=== PATIENT | male | born 1990 | race Caucasian/White ===

== ENCOUNTER 2019-09-08 08:17 | Observation (INO) | payer MEDICAID, SELFPAY ==
[2019-09-08] VITALS (13 sets, daily range): BP systolic 98–118; BP diastolic 52–76; PULSE 64–90; RESP 14–21; TEMP 36.4–37.2; O2SAT 88–95; BMI 15.7; BMI 21.9
--- NOTE | 2019-09-08 08:22 | RAD_ITS ---
STUDY: X-RAY CHEST REASON FOR EXAM: Male, 28 years old. SOB. HX OF ASTHMA TECHNIQUE: Single AP portable view of the chest. COMPARISON: None. FINDINGS: The lungs are clear and expanded. There is no demonstrated pleural abnormality. Normal size heart. Normal mediastinum and isamar. Normal visualized pulmonary arteries. Normal visualized aortic arch and descending thoracic aorta. Normal visualized thoracic spine. Normal visualized ribs, clavicles, and shoulders. There is no demonstrated abnormality of the visualized soft tissue structures of the upper abdomen. RAD/Chest 1 View (Portable) IMPRESSION: Normal x-ray examination of the chest. Electronically Signed: Neeraj Cassidy MD at 10:55 EST Tel , Service support ,
--- NOTE | 2019-09-08 08:23 | EKG12_ITS ---
Test Reason : SOB Blood Pressure : / mmHG Vent. Rate : 094 BPM Atrial Rate : 094 BPM P-R Int : 136 ms QRS Dur : 106 ms QT Int : 352 ms P-R-T Axes : 070 -69 061 degrees QTc Int : 440 ms Sinus rhythm with Fusion complexes Incomplete right bundle branch block Left anterior fascicular block Abnormal ECG Confirmed by MICHELE VARGAS, WAYNE ([id number]), editor continuity and script NAVIN AMATO ([id number]) on 09/11/2019 1:09:55 PM Referred By: Jed You Confirmed By:WAYNE BAUTISTA MD
--- NOTE | 2019-09-08 08:25 | ED.DCSUM_ITS ---
History of Present Illness Chief Complaint: Shortness of Breath Informant: Patient, EMS Onset: Today Activity at onset: Rest Timing: Continuous Quality: Wheezing Current Severity: Moderate Maximum Severity: Severe Worsened by: Coughing, Exertion Relieved by: Albuterol - but very little Associated Symptoms: Cough. Negative for: Bloody Sputum Chest Pain: Tightness Narrative: Patient states he has had symptoms of a typical sinus infection for him for the past 1.5 weeks, and this morning his asthma started flaring up to a severe point while he was driving home from working third shift. 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 He had to call EMS to pick him up once he got home, after using a couple albuterol treatments. He was given 2 more treatments by EMS in addition to being given Solu-Medrol 125 mg. He has a history of severe exacerbations and has been intubated in the ICU for this before. He does not feel that severe at this time. He has no other major medical problems, although he did have nasal polyp surgery and states he has had sinusitis on occasion since then. He has not seen a provider in the past 1.5 weeks since the sinusitis symptoms started, which include thick yellow nasal sputum, congestion, lots of sinus pressure, giving a bifrontal headache. No fevers. No blood. No hemoptysis. - Past Medical History (1) Asthma Status: Chronic Past Medical History - Allergies and Home Meds Allergies/Adverse Reactions: Allergies amoxicillin Allergy (Verified 09/08/19 08:26) Shortness of breath ibuprofen Allergy (Verified 09/08/19 08:26) Unknown Primary Care Physician: Care Physician,No Primary [Primary Care Provider] - Surgical History: - - nasal polypectomy Lives: Alone Smoking Status: Former smoker Review of Systems General: Reports: Malaise. Denies: Chills, Fever, Sweats Eyes: Denies: Visual changes - bilaterally, Diplopia ENT: Reports: Rhinorrhea, - - facial pressure. Denies: Bilateral ear pain, Sore throat Cardiovascular: Reports: Chest pain - tightness. Denies: Palpitations Respiratory: Reports: Dyspnea, Cough, Sputum, Dyspnea on exertion Gastrointestinal: Denies: Abdominal pain, Nausea, Vomiting, Diarrhea, Melena, Hematochezia Genitourinary: Denies: Dysuria, Hematuria, Frequency Musculoskeletal: Denies: Back pain, Swelling, Extremity Pain Skin: Denies: Rash, Wounds Neurological: Denies: Headache, Weakness, Numbness Physical Exam Vital Signs/Narrative: Vital Signs Temp Pulse Resp BP Pulse Ox 09/08/19 08:19 98.5 F 86 21 H 106/70 88 Inital Vital Signs reviewed: Yes General: Well nourished, Well developed, No Acute Distress Head: Normocephalic, Atraumatic Eyes: Perrl, EOMI ENT: Moist mucous membranes, No rhinorrhea, Sinus tenderness - diffuse bilat Neck: Supple, Nontender Cardiovascular: Regular rate, Regular rhythm, No murmurs, Tachycardia Respiratory: No distress - but tachypneic, Chest nontender, Wheezing. Negative for: Rales, Rhonchi Abdomen: Soft, Nontender, Nondistended, Normal bowel sounds Back: Nontender, Normal Inspection Extremities: Nontender, No edema. Negative for: Calf Tenderness Skin: Normal color, No rash, No Trauma Neurological: Alert, Oriented x3, Cranial nerves II-XII grossly intact, Normal Strength, Normal Sensation Psychological: Normal affect, Normal Mood Diagnostic/Tx/Re-eval Chest X-Ray - ED: 1 View, Read by ED Physician, Normal, Heart, Lungs, Mediastinum, Bony Structures, No Acute Disease 09/08/19 08:22 Chest 1 View (Portable) [RAD] Stat Laboratory Results 09/08/19 09/08/19 08:34 08:34 WBC 12.8 H RBC 5.32 Hgb 14.7 Hct 45.5 MCV 85.5 MCH 27.6 MCHC 32.3 RDW Std Deviation 41.5 RDW Coeff of Kimberly 13.3 Plt Count 299 MPV 9.7 Immature Gran % (Auto) 0.200 Neut % (Auto) 59.2 Lymph % (Auto) 17.5 L [place] % (Auto) 7.9 Eos % (Auto) 14.6 H Baso % (Auto) 0.6 Absolute Neuts (auto) 7.6 Absolute Lymphs (auto) 2.24 Nucleated RBC % 0 Sodium 141 Potassium 3.8 Chloride 108 H Carbon Dioxide 26.0 Anion Gap 7 BUN 18 Creatinine 1.09 Estim Creat Clear Calc 69.83 Est GFR (MDRD) Af Amer 104 Est GFR (MDRD) Non-Af 86 BUN/Creatinine Ratio 16.5 Glucose 95 Calcium 9.0 - Rhythm Strip Rhythm Strip: Sinus Tach Rate: 105 Ectopy: None - EKG Initial EKG Interpretation: Sinus Rhythm, No Acute Injury Pattern Treatment - Dyspnea: Oxygen, Albuterol, Atrovent, Antibiotics, Steroid - given [employer] Repeat Evaluation: Improved - but still hypoxemic on RA - Medical Decision Making On my interpretation chest x-ray shows no pneumonia. His labs show a mild nonspecific leukocytosis and are otherwise unremarkable. He was treated with terbutaline, IV magnesium, and an additional breathing treatment. On reevaluation his breathing is resolved, he is sleeping since he just got off of third shift. We turned his oxygen off, he is still hypoxic at 87% on room air. Therefore he placed back on oxygen, he is needing a Ventimask since his nasal cavity is clogged with mucus due to a sinusitis. Plan is for admission. ED Disposition - Plan for ED Patient: Disposition: [facility] Care [facility] Diagnosis: Acute asthma exacerbation, Acute sinusitis, Hypoxemia
--- NOTE | 2019-09-08 08:32 | NURSING ---
NO OLD EKGS
[2019-09-08] MEDS: Terbutaline 1 MG/ML Vial 0.25 MG SC (08:38)
[2019-09-08 08:48] LABS: Absolute Lymphocyte Count 2.24 X10^3/uL (0.83-4.51); Absolute Neutrophil Count 7.6 X10^3/uL (2.0-7.7); Basophil# 0.08 X10^3/uL; Basophil% 0.6 % (0-1); Eosinophil# 1.87 X10^3/uL; Eosinophils% 14.6 % (0-5); Hematocrit 45.5 % (40-54); Hemoglobin 14.7 g/dL (13.0-16.5); Lymphocyte # 2.24 X10^3/ul (4.0); Lymphocyte % 17.5 % (19-41); Mean Corp Hgb Conc 32.3 g/dL (32-36); Mean Corpuscular Hgb 27.6 pg (27.0-32.0); Mean Corpuscular Volume 85.5 fL (80-94); Mean Platelet Vol. 9.7 fl (6.2-12.0); Monocyte# 1.01 X10^3/uL; Monocyte% 7.9 % (0-10); NRBC Flagged by Analyzer 0 % (0-5); Neutrophil # 7.58 X10^3/uL (2.7-7.7); Neutrophil % 59.2 % (47-70); Platelet Count 299 K/mm3 (150-450); RBC Distribution Width CV 13.3 % (11.6-14.6); RBC Distribution Width SD 41.5 fl (35.1-43.9); Red Blood Count 5.32 M/mm3 (4.6-6.2); White Blood Count 12.8 K/mm3 (4.4-11.0)
[2019-09-08 08:56] LABS: Anion Gap 7 (5-15); BUN 18 mg/dL (7-18); BUN/Creat Ratio 16.5 RATIO (10-20); Chloride 108 mmol/L (98-107); Creatinine, Serum 1.09 mg/dL (0.70-1.30); EST Glomerular Filtration Rate 86 mL/min (>60); Est Glom Filt Rate - Afr Amer 104 mL/min (>60); Estimated Creatinine Clearance 69.83 ml/min; Glucose 95 mg/dL (74-106); Potassium 3.8 mmol/L (3.5-5.1); Sodium Level 141 mmol/L (136-145)
[2019-09-08] MEDS: Ondansetron 4 MG/2 ML Vial IV (09:36)
--- NOTE | 2019-09-08 10:31 | NURSING ---
TOOK THE PT OFF HIS DAVID MASK AND THE PT DESAT INTO THE 80'S. PUT THE PT BACK ON OXYGEN DUE TO THIS. THE PT IS NOW DOING BETTER WITH THE OXYGEN.
--- NOTE | 2019-09-08 10:50 | NURSING ---
DR RALPH BASSETT
--- NOTE | 2019-09-08 10:54 | NURSING ---
PCU KITTOE ASTHMA EXAC, HYPOXEMIA
--- NOTE | 2019-09-08 10:56 | HP.PCM_ITS ---
Problem List (1) Acute asthma exacerbation Status: Acute (2) Acute sinusitis Status: Acute (3) Hypoxemia Status: Acute (4) Asthma Status: Chronic History of Present Illness Date of Admission: 09/08/19 Chief Complaint: Shortness of breath The patient is a 28 year old M moderate persistent asthma who presented with shortness of breath. Patient had apparently run out of his Symbicort however he was yet to refill them. On the morning of his presentation he did develop significant shortness of breath with wheezing. He had tried to use his albuterol without much improvement. Patient subsequently presented to the emergency department as a result. Initial treatment administered in the emergency department did not result in significant improvement in patient condition. He was simply hypoxic saturating in the mid 80s. Of note patient had recently been treated for severe sinusitis Past Medical History Past Medical History (Chronic Problems): Chronic Problems Asthma (Chronic) Allergies amoxicillin Allergy (Verified 09/08/19 08:26) Shortness of breath ibuprofen Allergy (Verified 09/08/19 08:26) Unknown Home Medications: Ambulatory Orders Medication Instructions Recorded Albuterol Aerosols [Ventolin 2.5 mg INHALATION Q4HWA.RT 09/08/19 Aerosols] Albuterol Inhaler [Ventolin Hfa 1 - 2 puff INHALATION Q4H PRN PRN 09/08/19 (SP)] Budesonide/Formoterol 160/4.5 2 puff INHALATION BID 09/08/19 [Symbicort 160/4.5 Mcg Inhaler (SP)] Surgical History: - - nasal polypectomy Lives: Alone Smoking Status: Former smoker - *Family History Maternal History Items: No pertinent history - According to patient Paternal History Items: No pertinent history - According to patient Review of Systems Constitutional: Reports: Malaise. Denies: Anorexia, Chills, Fever, Night Sweats, Weight Change HEENT: Reports: Head Aches, Nasal Congestion, Sinus Congestion. Denies: Sinus Drainage Cardiovascular: Denies: Chest Pain, Orthopnea, Palpitations, Paroxysmal Noc. Dyspnea Respiratory: Reports: Cough, Shortness of Breath, Wheezing Gastrointestinal: Denies: Abdominal Pain, Hematemesis, Hematochezia, Nausea, Melena, Vomiting Genitourinary: Denies: Dysuria, Frequency, Hematuria, Urgency Musculoskeletal: Denies: Joint Pain, Joint Tenderness Skin: Denies: Rash Neurological: Denies: Focal weakness, Numbness, Tingling Psychiatric: Denies: Homicidal Ideations, Suicidal Ideations Hematologic/ Lymphatic: Denies: Easy Bruising, Easy Bleeding VTE Information - Inpt Only VTE Present on Admission: No VTE Mechan Device Prophylaxis: None VTE Pharm Prophylaxis ordered?: No Reason prophylaxis not ordered:: Treatment Not Indicated Patient Problems: Active and Suspected Problems Acute asthma exacerbation (Acute) Acute sinusitis (Acute) Hypoxemia (Acute) Objective: GENERAL: Appears ill looking HEENT: Atraumatic; EYES; Anicteric, Normal Conjunctiva NECK; supple, normal thyroid, RESPIRATORY: Diminished to auscultation bilateral wheezes CARDIOVASCULAR: Regular S1 S2, GI: soft, normoactive bowel sounds, : No Renal angle tenderness; EXTREMITIES: No edema, no clubbing, MUSCULOSKELETAL: no muscle waisting NEURO: Awake; no lateralizing signs. SKIN: No Rash PSYCH; Flat affect - Physical Exam Vitals/I&O's: Vital Signs Temp Pulse Resp BP Pulse Ox 97.6 F L 68 17 101/52 L 94 09/08/19 09:37 09/08/19 10:35 09/08/19 10:35 09/08/19 10:35 09/08/19 10:35 Oxygen Flow Rate (L/min) 5 Oxygen Delivery Method Venturi Mask Weight: 48.5 kg Body Mass Index (BMI) 15.7 Laboratory Results 09/08/19 08:34: WBC 12.8 H, RBC 5.32, Hgb 14.7, Hct 45.5, MCV 85.5, MCH 27.6, MCHC 32.3, RDW Std Deviation 41.5, RDW Coeff of Kimberly 13.3, Plt Count 299, MPV 9.7, Immature Gran % (Auto) 0.200, Neut % (Auto) 59.2, Lymph % (Auto) 17.5 L, [place] % (Auto) 7.9, Eos % (Auto) 14.6 H, Baso % (Auto) 0.6, Absolute Neuts (auto) 7.6, Absolute Lymphs (auto) 2.24, Nucleated RBC % 0 09/08/19 08:34: Sodium 141, Potassium 3.8, Chloride 108 H, Carbon Dioxide 26.0, Anion Gap 7, BUN 18, Creatinine 1.09, Estim Creat Clear Calc 69.83, Est GFR (MDRD) Af Amer 104, Est GFR (MDRD) Non-Af 86, BUN/Creatinine Ratio 16.5, Glucose 95, Calcium 9.0 Assessment/Plan All Active Problems Acute asthma exacerbation (Acute) Acute sinusitis (Acute) Hypoxemia (Acute) Patient is a 28-year-old gentleman admitted with progressive shortness of breath associated with wheezing and assessment of acute asthma exacerbation made admitted to a monitored bed for further management 1. Acute hypoxic respiratory failure ~secondary to severe asthma exacerbation management as is treatment of the underlying etiology as discussed below 2. Acute asthma exacerbation ?Admitted to monitored bed patient was placed on supplemental oxygen via Ventimask titrated to keep saturation greater than 90. Patient was also placed on systemic steroid, bronchodilator therapy, and antitussives and supplemental oxygen. Consult was placed to pulmonary medicine 3. Recurrent sinusitis ?With mucopurulent discharge patient was placed on antibiotic therapy with Levaquin (has allergy to amoxicillin) 4. Tobacco dependence ?Counseled on cessation, offered nicotine patch for tobacco cravings 5. DVT prophylaxis ?Low risk did encourage early ambulation Code Visit OBSV E&M: 41357 Initial observation care L3
[2019-09-08] MEDS: levoFLOXacin 500 MG Tablet PO (11:43)
[2019-09-08] MEDS: Ipratropium/Albuterol Sulfate 3 ML AMPUL.NEB INHALATION ×2 (12:00→15:12)
[2019-09-08] MEDS: 0.9% Saline Lock 10 ML Syringe IV (13:26)
--- NOTE | 2019-09-08 14:50 | CON.PCM_ITS ---
Reason for Consult Date of Consultation: 09/08/19 Reason for Consultation: Asthma History of Present Illness: The patient is a 28-year-old male, with a history as outlined below, who presented to the emergency department on September 08 with complaints of shortness of breath, cough and wheezing. The patient reports that he was initially diagnosed with asthma around the age of [age] years old. He was previously being followed by a senior architectural designer out of [place]. He does report having undergone prior nasal polyp surgery. The patient was previously utilizing twice daily Symbicort, but readily admits that he ran out approximately 3 to 4 weeks ago. Since running out of his maintenance inhaler, the patient has noticed a progressive decline in his respiratory status. The patient is a current every day smoker. He does report the presence of rhinorrhea, nasal congestion and postnasal drip as well. On presentation to the emergency department, the patient was noted to be afebrile and hemodynamically stable. However, he was initially saturating 80% on room air. Initial laboratory evaluation revealed an elevated white blood cell count to 13,000. Of note, the patient had significant peripheral eosinophilia of nearly 14.6%. Chemistry profile was unrevealing. Plain film chest x-ray r evealed no acute cardiopulmonary process. The patient was placed on scheduled bronchodilators and IV steroids. He was admitted to the progressive care unit for further management. Past Medical History Past Medical History (Chronic Problems): Chronic Problems Asthma (Chronic) Allergies amoxicillin Allergy (Verified 09/08/19 08:26) Shortness of breath ibuprofen Allergy (Verified 09/08/19 08:26) Unknown Home Medications: Ambulatory Orders Medication Instructions Recorded Albuterol Aerosols [Ventolin 2.5 mg INHALATION Q4HWA.RT 09/08/19 Aerosols] Albuterol Inhaler [Ventolin Hfa 1 - 2 puff INHALATION Q4H PRN PRN 09/08/19 (SP)] Budesonide/Formoterol 160/4.5 2 puff INHALATION BID 09/08/19 [Symbicort 160/4.5 Mcg Inhaler (SP)] Surgical History: - - nasal polypectomy Lives: Alone Smoking Status: Current every day smoker Tobacco Use: Cigarettes - *Family History Maternal History Items: No pertinent history - According to patient Paternal History Items: No pertinent history - According to patient Review of Systems Constitutional: Denies: Chills, Fever Eyes: Denies: Blurred vision, Double vision HEENT: Reports: Nasal Congestion, Post Nasal Drip, Sinus Drainage Cardiovascular: Reports: Chest Tightness Respiratory: Reports: Cough, Shortness of Breath, Wheezing Gastrointestinal: Denies: Abdominal Pain, Nausea, Vomiting Genitourinary: Denies: Dysuria Musculoskeletal: Denies: Joint Pain, Joint Tenderness Skin: Denies: Rash, Wounds Neurological: Denies: Numbness, Tingling, Focal weakness Psychiatric: Denies: Anxiety, Depression, Homicidal Ideations, Suicidal Ideat ions Hematologic/ Lymphatic: Denies: Easy Bruising, Easy Bleeding Objective: The patient's most recent lab work, culture data and imaging studies have all been personally reviewed. - Physical Exam Vitals/I&O's: Vital Signs Temp Pulse Resp BP Pulse Ox 98.0 F 78 18 108/69 95 09/08/19 12:00 09/08/19 12:16 09/08/19 12:00 09/08/19 12:00 09/08/19 12:00 Oxygen Flow Rate (L/min) 5 Oxygen Delivery Method Room Air Weight: 140 lb Body Mass Index (BMI) 21.9 Intake and Output for Last 24 Hours 09/06/19 09/07/19 09/08/19 23:59 23:59 23:59 Intake Total 104 / 104 Balance 104 / 104 General: Alert, Oriented x3, Cooperative, No apparent distress HEENT: Atraumatic, PERRLA, Normocephalic Oral: No Gingival or Mucosal Lesions/ Ulcerations Neck: Supple, No Nodes, Trachea Midline Lungs: Diminished, Wheezes Cardiovascular: Regular rate, Regular Rhythm, Normal S1, Normal S2, No murmurs Abdomen: Bowel Sounds Present, Soft, Non Tender Extremities: No clubbing, No cyanosis, No edema Skin: No breakdown Musculoskeletal: No Tenderness to Palpation of Joints or Extremities, No Muscle Wasting Lymphatic: No Cervical, Supraclavicular, or Inguinal Adenopathy Neurological: Cranial nerves II-XII grossly intact, Neuro grossly intact Psych/Mental Status: Alert and oriented to time, place, person, mood and affect Labs (Last 48 Hours) 09/08/19 09/08/19 08:34 08:34 WBC 12.8 H RBC 5.32 Hgb 14.7 Hct 45.5 MCV 85.5 MCH 27.6 MCHC 32.3 RDW Std Deviation 41.5 RDW Coeff of Kimberly 13.3 Plt Count 299 MPV 9.7 Immature Gran % (Auto) 0.200 Neut % (Auto) 59.2 Lymph % (Auto) 17.5 L [place] % (Auto) 7.9 Eos % (Auto) 14.6 H Baso % (Auto) 0.6 Absolute Neuts (auto) 7.6 Absolute Lymphs (auto) 2.24 Nucleated RBC % 0 Sodium 141 Potassium 3.8 Chloride 108 H Carbon Dioxide 26.0 Anion Gap 7 BUN 18 Creatinine 1.09 Estim Creat Clear Calc 69.83 Est GFR (MDRD) Af Amer 104 Est GFR (MDRD) Non-Af 86 BUN/Creatinine Ratio 16.5 Glucose 95 Calcium 9.0 Clinical Impression(s) from Imaging Studies Chest X-Ray 09/08/19 08:22 IMPRESSION: Normal x-ray examination of the chest. Electronically Signed: Neeraj Cassidy MD at 10:55 EST Tel , Service support , Current Medications Acetaminophen (Tylenol) 650 mg PO Q6H PRN PRN PRN Reason: Pain Score 1-3/Temp > 100.7 F Al Hydroxide/Mg Hydroxide (Mylanta Ii) 30 ml PO Q6H PRN PRN PRN Reason: Gastric Burning Albuterol Sulfate (Ventolin Aerosols) 2.5 mg INHALATION Q2H PRN PRN PRN Reason: SOB/Wheezing Albuterol/Ipratropium (Duoneb) 3 ml INHALATION Q4H.RT [facility] Last Admin: 09/08/19 12:00 Dose: 3 ml Documented by: Dextrose (D50w Syringe) 0 gm IV X1 PRN; Protocol PRN Reason: Hypoglycemia Glucagon () 1 mg IM .X1 PRN PRN Reason: Hypoglycemia Guaifenesin (Robitussin) 20 ml PO Q4H PRN PRN PRN Reason: COUGH Levofloxacin (Levaquin Iv) 500 mg in 100 mls @ 100 mls/hr IV Q24 ELISE Stop: 09/13/19 10:59 Magnesium Hydroxide (Milk Of Magnesia) 30 ml PO DAILY PRN PRN PRN Reason: Constipation Melatonin (Melatonin) 3 mg PO QHS PRN PRN PRN Reason: INSOMNIA Methylprednisolone (Solu-Medrol) 40 mg IV Q8 ELISE Stop: 09/09/19 14:01 Last Admin: 09/08/19 13:26 Dose: 40 mg Documented by: Ondansetron HCl (Zofran) 4 mg IV Q8H PRN PRN PRN Reason: NAUSEA/VOMITING Oxycodone HCl (Oxyir) 10 mg PO Q4H PRN PRN PRN Reason: Pain Score 6-10/10 Oxycodone HCl (Oxyir) 5 mg PO Q4H PRN PRN PRN Reason: Pain Score 4-5/10 Prednisone () 40 mg PO DAILY@0800 ELISE Sodium Chloride () 10 - 40 ml IV UD PRN PRN Reason: SALINE FLUSH Last Admin: 09/08/19 13:26 Dose: 10 ml Documented by: Throat Lozenges (Cepacol Sore Throat Lozenge) 1 lozenge MUCOUS MEM Q2H PRN PRN PRN Reason: Sore Throat/Cough Assessment/Plan All Active Problems Acute asthma exacerbation (Acute) Acute sinusitis (Acute) Hypoxemia (Acute) RECOMMENDATIONS: 1. Continue Levaquin while awaiting infectious work-up. 2. Continue scheduled bronchodilators and IV steroids. 3. Start Singulair and Flonase. 4. The patient undoubtedly needs to be restarted on a LABA/ICS combination maintenance inhaler at discharge. 5. Perform walking oximetry study prior to consideration for discharge home. 6. Recommend close outpatient pulmonary follow-up within 2 weeks of discharge. IMPRESSIONS: 1. Acute hypoxemic respiratory insufficiency, likely secondary to asthma exacerbation While the patient does not have evidence of a focal infiltrate on chest x-ray, his current state of exacerbation is likely secondary to outpatient noncompliance with his maintenance inhaler regimen coupled with upper respiratory symptoms and subsequent postnasal drip. Recommend continuing empiric antimicrobials, while awaiting infectious work-up. Continue scheduled bronchodilators and IV steroids. In addition, the patient will also be started on Singulair and Flonase. I would recommend that he be restarted on his combination LABA/ICS maintenance inhaler upon discharge from the hospital. The patient will require close follow-up in the pulmonary medicine clinic within 2 weeks of discharge. 2. Tobacco dependency I personally spent 5 minutes discussing the deleterious effects of continued tobacco use with the patient, including modalities which could be utilized to achieve a smoke-free lifestyle. This note was generated with Qwikwireation software. It may contain incorrect words, spelling, and punctuation that were not noted in checking the note before signing. Code Visit Inpatient E&M: 47825 Init Hosp L3 - Behavior Interventions Behavior Intervention: 28214 Smoking Cessation 3-10 min
[2019-09-08] MEDS: Montelukast 10 MG Tablet PO (16:42)
--- NOTE | 2019-09-08 20:07 | NURSING ---
Pt stating he needs to leave immediately d/t girlfriend needing him. Requested pt to speak to charge nurse first.
--- NOTE | 2019-09-08 20:32 | NURSING ---
Charge nurse Uma to room, pt stating he is leaving AMA. IV removed, tele box returned to nurse station. Pt signed AMA papers. Pt encouraged to establish relationship with a MD so he can get his prescriptions, return to ED if experiences further problems.
--- NOTE | 2019-09-08 22:11 | NURSING ---
09/08/192019 Asked to talk to patient by his primary nurse. Entered room, patient states he is leaving now. Encouraged him to stay. Explained to patient it is against medical advice to leave he has not been discharged. States he doesn't care, his fiance is at home, she is high risk and he wants to be with her. I asked him if there is anyone that can stay with her tonight and he said there is no one. No family here, it is the 2 of them and their 2 children. Again he said he is leaving, he said he wants prescriptions so he can go home. Explained to him that he will not get new prescriptions if he is signing out against medical advice. I said he would need to follow up with his primary care doctor. Much frustration voiced. He states he does not have one. Encouraged him to stay to get appropriate meds at discharge and help to establish a primary doctor. He states he is leaving now. AMA papers signed. Encouraged patient to return to the ED if his symptoms return.
--- NOTE | 2019-09-09 11:57 | PCM.DC.SUM ---
Discharge Date and Diagnosis Date of Admission: 09/08/19 Date of Discharge: 09/08/19 - Primary Discharge Diagnosis Asthma exacerbation - Secondary Discharge Diagnosis Chronic Problems Asthma (Chronic) Hospital Course and Treatment Summary of Care Provided: Patient is a 28-year-old gentleman admitted with progressive shortness of breath associated with wheezing and assessment of acute asthma exacerbation made admitted to a monitored bed for further management 1. Acute hypoxic respiratory failure ~secondary to severe asthma exacerbation management as is treatment of the underlying etiology ?Patient elected to sign out AGAINST MEDICAL ADVICE less than 24 hours after being admitted attempt made for patient to rescind his decision improved future. He was instructed to call his primary care physician for subsequent care. 2. Acute asthma exacerbation ?Admitted to monitored bed patient was placed on supplemental oxygen via Ventimask titrated to keep saturation greater than 90. Patient was also placed on systemic steroid, bronchodilator therapy, and antitussives and supplemental oxygen. Consult was placed to pulmonary medicine 3. Recurrent sinusitis ?With mucopurulent discharge patient was placed on antibiotic therapy with Levaquin (has allergy to amoxicillin) 4. Tobacco dependence ?Counseled on cessation, offered nicotine patch for tobacco cravings 5. DVT prophylaxis ?Low risk did encourage early ambulation - Physical Exam Vitals/I&O's: Vital Signs Temp Pulse Resp BP Pulse Ox 98.9 F 89 16 102/63 94 09/08/19 16:40 09/08/19 16:40 09/08/19 16:40 09/08/19 16:40 09/08/19 16:40 Oxygen Flow Rate (L/min) 5 Oxygen Delivery Method Room Air Weight: 63.503 kg Body Mass Index (BMI) 21.9 Intake and Output for Last 24 Hours 09/07/19 09/08/19 09/09/19 23:59 23:59 23:59 Intake Total 604 / 604 Balance 604 / 604 Microbiology Past 72 Hours 09/08/19 12:18 Sputum, Expectorated/Coughed Gram Stain - Final Discharge Diet: No Restrictions Discharge Activity: Return to Normal Activity Home Medications: Medications to take at Discharge Albuterol Aerosols [Ventolin Aerosols] 2.5 mg INHALATION Q4HWA.RT 09/08/19 Albuterol Inhaler [Ventolin Hfa (SP)] 1 - 2 puff INHALATION Q4H PRN PRN 09/08/19 Budesonide/Formoterol 160/4.5 [Symbicort 160/4.5 Mcg Inhaler (SP)] 2 puff INHALATION BID 09/08/19 Primary Care Physician: Care Physician,No Primary [Primary Care Provider] - Disposition: Against Medical Advice Patient Condition:: Fair Medical Necessity - Tobacco Use Smoking Status: Current every day smoker Tobacco Use: Cigarettes Meaningful Use Info Meaningful Use Diagnoses (Choose all that apply): None applicable Code Visit OBSV E&M: 26881 Observ/hosp same date L3
== END 2019-09-08 20:30 | disposition home or self-care (01) ==
LOC: ED 10:44 → PCU 11:35
PROVIDERS: Admitting Provider Internal Medicine; Emergency Provider Emergency Medicine; Referring Provider Internal Medicine; Visit Provider Internal Medicine
DX: J45.41 Moderate persistent asthma with (acute) exacerbation (principal); J96.01 Acute respiratory failure with hypoxia; Z79.52 Long term (current) use of systemic steroids; J01.90 Acute sinusitis, unspecified; F17.210 Nicotine dependence, cigarettes, uncomplicated
CPT/HCPCS: 71045; 80048; 85025; 87070; 87205; 87633; 93005; 94640; 94667; 96372; 96374; 96375; 99218; 99251; 99285; A4216; G0378; G0463; J2405

== ENCOUNTER 2021-10-15 10:30 | Emergency (ER) | payer MEDICARE, MEDICAID, OTHER, SELFPAY ==
[2021-10-15 10:31] VITALS: BP 112/78; PULSE 90; RESP 18; TEMP 36.6; O2SAT 98; BMI 21.9
--- NOTE | 2021-10-15 11:40 | EDS_ITS ---
HPI History of Present Illness Chief Complaint: Back Narrative Narrative: 30-year-old male presenting with pain in the sacrum and coccyx. States he slipped on ice and injured this. 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 He states that he was unable to do this and he was sent home. He complains of pain that is very difficult control because he is allergic to ibuprofen and Tylenol is not helping. He denies other injury. PFSH PFSH Home Medications albuterol sulfate 1 - 2 puff INHALATION Q4H PRN PRN 09/08/19 [History Last Taken Unknown] albuterol sulfate 2.5 mg INHALATION Q4HWA.RT 09/08/19 [History Last Taken Unknown] budesonide-formoterol 2 puff INHALATION BID 09/08/19 [History Last Taken Unknown] oxycodone-acetaminophen [Endocet] 1 tab PO Q6H PRN 3 Days #12 tab 10/15/21 [Rx Last Taken Unknown] Allergy/AdvReac Type Severity Reaction Status Date / Time amoxicillin Allergy Hives Verified 10/15/21 10:34 ibuprofen Allergy Unknown Verified 10/15/21 10:34 Social History Smoking Status: Current every day smoker ROS ROS ED Constitutional Constitutional ED: Denies chills or fever(s) Eyes Eyes: Denies blurry vision or diplopia ENT ENT ED: Denies rhinorrhea or sore throat Cardiovascular Cardiovascular: Denies chest pain or palpitations Respiratory/Chest Respiratory/Chest: Denies dyspnea or sputum Gastrointestinal Gastrointestinal: Denies abdominal pain or nausea Genitourinary Genitourinary ED: Denies dysuria or hematuria Musculoskeletal Musculoskeletal: Reports other Details: Pain in tailbone ; Denies arthralgias or myalgias Integumentary Denies abscess or rash Neurologic Neurologic: Denies headache(s) or weakness EXAM Physical Exam Const Vital Signs: 10/15/21 10:31 Temperature 97.9 F Temperature Source Temporal Pulse Rate 90 Respiratory Rate 18 Blood Pressure 112/78 Blood Pressure Mean 89 Pulse Ox 98 Oxygen Delivery Method Room Air Positive well nourished General Appearance ED: NAD HEENT Reports moist mucous membranes Negative for trauma Eyes PERRL and EOMs intact bilaterally Resp normal respiratory effort and clear to auscultation bilaterally Cardio regular rhythm Back/Spine Back/Spine Narrative: There is palpation over sacrum and coccyx. No deformity. No ecchymosis. No rash or abrasions Extremity normal to inspection General Extremety ED: Negative for edema or tenderness General Extremity: Negative for edema Neuro oriented x3 Sensorium / Orientation: alert Psych mental status grossly normal Skin no rashes or lesions noted MDM MDM MDM Narrative Medical decision making narrative: Patient having significant pain from falling on his tailbone. He is able to ambulate but states it is very painful. He also states he has had to be sent home from work because he cannot work with the pain. He states that Tylenol is not helping he is allergic to ibuprofen. I do not believe he needs imaging. Patient will be given a prescription for oxycodone and given a work note for a couple of days. He was given follow-up with primary care physician. Patient to return precautions. Impression: 1. Mechanical fall 2. Tailbone contusion Discharge Plan Triage Chief Complaint: Back ED Provider: Tom Walden Dx/Rx/DC Orders Instructions: ED Coccyx or Sacrum Contusion Prescriptions: New oxycodone-acetaminophen [Endocet] 5-325 mg tablet 1 tab PO Q6H PRN (Reason: pain) 3 Days Qty: 12 RF: 0 No Action albuterol sulfate 2.5 MG/3 ML solution for nebulization 2.5 mg inhalation Q4HWA.RT RF: 0 albuterol sulfate 1 INHALER inhaler 1 - 2 puff inhalation Q4H PRN PRN (Reason: Shortness Of Breath) RF: 0 budesonide-formoterol 1 INHALER inhaler 2 puff inhalation BID RF: 0 Stand Alone Forms: ED Work / School Excuse Primary Care Provider: Care Physician,No Primary Referrals: Fast,Nicolle, DO [NON-STAFF] - 3-5 Days Care Physician,No Primary [Primary Care Provider] - Disposition Disposition: Home, Self Care
== END 2021-10-15 12:06 | disposition home or self-care (01) ==
PROVIDERS: Emergency Provider Student in an Organized Health Care Education/Training Program; Visit Provider Student in an Organized Health Care Education/Training Program
DX: S30.0XXA Contusion of lower back and pelvis, initial encounter (principal); W00.0XXA Fall on same level due to ice and snow, initial encounter; Y99.0 Civilian activity done for income or pay; Y92.89 Other specified places as the place of occurrence of the external cause; F17.200 Nicotine dependence, unspecified, uncomplicated
CPT/HCPCS: 99282

== ENCOUNTER 2022-03-24 22:03 | Emergency (ER) | payer OTHER, MEDICARE, MEDICAID, SELFPAY ==
[2022-03-24 22:04] VITALS: BP 106/64; PULSE 102; RESP 18; TEMP 37.2; O2SAT 97; BMI 18.1
[2022-03-24 22:07] VITALS: BP 106/64; PULSE 99; RESP 18; TEMP 37.2; O2SAT 97
--- NOTE | 2022-03-24 22:21 | EKG12_ITS ---
Test Reason : Blood Pressure : / mmHG Vent. Rate : 091 BPM Atrial Rate : 091 BPM P-R Int : 140 ms QRS Dur : 110 ms QT Int : 342 ms P-R-T Axes : 073 002 070 degrees QTc Int : 420 ms Normal sinus rhythm Normal ECG Confirmed by WAYNE BAUTISTA MD ([id number]), supervising editor news reel KOBE CIFUENTES ([id number]) on 03/26/2022 2:14:27 PM Referred By: Reagan Confirmed By:WAYNE BAUTISTA MD
--- NOTE | 2022-03-24 22:23 | EX.ED.DYSGE1 ---
HPI History of Present Illness Chief Complaint: Cough Informant: patient Onset/Context/Timing Onset: Days (3 days) Context: Gradual Onset Current Severity: Mild Maximum Severity: Moderate Narrative Narrative: Patient presents with 3-day history of cough and sharp chest pain when he takes a deep breath. He had similar symptoms with pneumonia and is concerned he may have pneumonia again. He does not believe he has had fever. He did not test for COVID. He did not receive the COVID-vaccine. He does have a history of asthma and states has been using his inhalers more frequently. [facility] Medical History Asthma Home Medications albuterol sulfate 2.5 mg/3 mL (0.083 %) solution for nebulization 2.5 mg inhalation Q4HWA.RT 09/08/19 [History Last Taken Unknown] albuterol sulfate 90 mcg/actuation aerosol inhaler 1 - 2 puff inhalation Q4H PRN PRN Shortness Of Breath 09/08/19 [History Last Taken Unknown] budesonide-formoterol HFA 160 mcg-4.5 mcg/actuation aerosol inhaler 2 puff inhalation BID 09/08/19 [History Last Taken Unknown] albuterol sulfate 90 mcg/actuation aerosol inhaler (Ventolin HFA) 2 puff inhalation Q4H PRN PRN Wheezing ##1 03/24/22 [Rx Last Taken Unknown] levofloxacin 750 mg tablet 750 mg PO DAILY #4 tabs 03/24/22 [Rx Last Taken Unknown] Allergy/AdvReac Type Severity Reaction Status Date / Time amoxicillin Allergy Hives Verified 10/15/21 10:34 ibuprofen Allergy Unknown Verified 10/15/21 10:34 Social History Smoking Status: Current every day smoker tobacco type: cigarettes ROS ROS ED Constitutional Constitutional ED: Denies chills or fever(s) Eyes Eyes: Denies change in vision or discharge from eye(s) ENT ENT ED: Denies discharge from eye(s), rhinorrhea or sore throat Cardiovascular Cardiovascular: Reports chest pain; Denies palpitations Respiratory/Chest Respiratory/Chest: Reports cough and dyspnea Gastrointestinal Gastrointestinal: Denies abdominal pain, diarrhea, nausea or vomiting Genitourinary Genitourinary ED: Denies difficulty urinating or dysuria Musculoskeletal Musculoskeletal: Denies back pain or extremity pain Integumentary Denies Abrasions or rash Neurologic Neurologic: Denies headache(s) or weakness Allergic/Immunologic Allergic/Immunologic ED: Denies lip swelling or urticaria EXAM Physical Exam Const Vital Signs: 03/24/22 22:04 03/24/22 22:07 03/24/22 22:41 Temperature 98.9 F 98.9 F Temperature Source Temporal Temporal Pulse Rate 102 H 99 Respiratory Rate 18 18 Respiratory Effort Normal Non-Labored Respiratory Depth Normal Respiratory Pattern Normal Blood Pressure 106/64 106/64 Blood Pressure Mean 78 78 Pulse Ox 97 97 Oxygen Delivery Method Room Air Room Air Room Air Positive well nourished and well developed General Appearance ED: well developed HEENT Reports normocephalic and head/scalp atraumatic Eyes PERRL and EOMs intact bilaterally Neck supple Chest Wall inspection of chest normal and palpation of chest normal Resp normal respiratory effort and clear to auscultation bilaterally Cardio regular rate and regular rhythm GI normal to inspection, nondistended, normoactive bowel sounds Palpation: soft Extremity normal to inspection Neuro oriented x3 and no sensory deficits noted Sensorium / Orientation: alert Motor Exam: strength 5/5 throughout Psych mental status grossly normal Skin no rashes or lesions noted MDM MDM MDM Narrative Medical decision making narrative: EKG, chest x-ray, lab work obtained. COVID swab ordered. Lab Data Attestation: I reviewed the patient's lab results. Labs: Laboratory Results - last 24 hr 03/24/22 03/24/22 03/24/22 22:39 22:39 22:39 WBC 20.1 H RBC 4.51 L Hgb 12.8 L Hct 38.4 L MCV 85.1 MCH 28.4 MCHC 33.3 RDW Std Deviation 40.0 RDW Coeff of Kimberly 12.8 Plt Count 262 MPV 10.1 Immature Gran % (Auto) 2.100 H Neut % (Auto) 77.8 H Lymph % (Auto) 8.2 L [place] % (Auto) 7.3 Eos % (Auto) 4.3 Baso % (Auto) 0.3 Absolute Neuts (auto) 15.6 H Absolute Lymphs (auto) 1.65 Nucleated RBC % 0 D-Dimer Quant (PE/DVT) 0.31 Sodium 139 Potassium 3.9 Chloride 107 Carbon Dioxide 26.0 Anion Gap 6 BUN 12 Creatinine 1.12 Estim Creat Clear Calc 71.61 Est GFR (MDRD) Af Amer 99 Est GFR (MDRD) Non-Af 82 BUN/Creatinine Ratio 10.7 Glucose 111 H Calcium 8.9 Rapid COVID: Negative Radiography Chest X-Ray - ED: 1 View, Read by ED Physician and Right Infiltrate Diagnostic Testing: Clinical Impression(s) from Imaging Studies Chest X-Ray 03/24/22 22:55 IMPRESSION: Right-sided new right-sided multilobar pneumonia. Follow to resolution. Electronically Signed: Clovis Rand MD at 23:31 EDT , EKG Initial EKG: Attestation: I personally reviewed and interpreted this EKG as follows: Interpretation: Sinus Rhythm (Sinus at 91 with no acute ischemia.) Treatment and Re-Evaluation Narrative: Test resultsOn repeat evaluation patient resting comfortably. He is not hypoxic. Test results discussed with the patient. He will be treated with a course of Levaquin. He will be given a prescription for new albuterol inhaler. He will be referred to a local PCP to establish primary care. Patient does report that he has had pneumonia previously and it is always in the right lung. 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 He is not a smoker. He denies any difficulty with aspiration. Return instructions will be provided. Discharge Plan Triage Chief Complaint: Cough ED Provider: Lupe Ward Dx/Rx/DC Orders Clinical Impression: Pneumonia Instructions: ED Pneumonia (Adult) Prescriptions: New levofloxacin 750 mg tablet 750 mg PO DAILY Qty: 4 0RF albuterol sulfate [Ventolin HFA] 90 mcg/actuation HFA aerosol inhaler 2 puff inhalation Q4H PRN PRN (Reason: Wheezing) Qty: 1 0RF No Action albuterol sulfate 2.5 MG/3 ML solution for nebulization 2.5 mg inhalation Q4HWA.RT albuterol sulfate 1 INHALER inhaler 1 - 2 puff inhalation Q4H PRN PRN (Reason: Shortness Of Breath) budesonide-formoterol 1 INHALER inhaler 2 puff inhalation BID Primary Care Provider: Care Physician,No Primary Referrals: Kate Yap MD [STAFF PHYSICIAN] - As soon as possible Care Physician,No Primary [Primary Care Provider] - Disposition Disposition: Home, Self Care
[2022-03-24] MEDS: 0.9% Normal Saline 1,000 ML 150 ML IV (22:54)
--- NOTE | 2022-03-24 22:55 | RAD_ITS ---
EXAM: XR CHEST, 1 VIEW CLINICAL INDICATION: cough TECHNIQUE: Frontal view of the chest. This report was created using [employer] report generation technology. COMPARISON: 09/08/2019 FINDINGS: LUNGS AND PLEURAL SPACES: Biapical scarring. Pneumonia involving the right midlung zone and medial aspect of the right lower lobe. No pneumothorax. No effusion. HEART: Unremarkable. Cardiac silhouette not enlarged. MEDIASTINUM: Central airways and mediastinal contour are unremarkable. BONES/JOINTS: Unremarkable. SOFT TISSUES: Unremarkable. RAD/Chest 1 View (Portable) IMPRESSION: Right-sided new right-sided multilobar pneumonia. Follow to resolution. Electronically Signed: Clovis Rand MD at 23:31 EDT ,
[2022-03-24 22:59] LABS: D-Dimer Quantitative (DVT/PE) 0.31 FEU/ug/m (0.27-0.49)
[2022-03-24 23:04] LABS: Anion Gap 6 (5-15); BUN 12 mg/dL (7-18); BUN/Creat Ratio 10.7 RATIO (10-20); Calcium,Total 8.9 mg/dL (8.5-10.1); Chloride 107 mmol/L (98-107); Creatinine, Serum 1.12 mg/dL (0.70-1.30); EST Glomerular Filtration Rate 82 mL/min (>60); Est Glom Filt Rate - Afr Amer 99 mL/min (>60); Estimated Creatinine Clearance 71.61 ml/min; Glucose 111 mg/dL (74-106); Potassium 3.9 mmol/L (3.5-5.1); Sodium Level 139 mmol/L (136-145)
[2022-03-24 23:07] LABS: Absolute Lymphocyte Count 1.65 X10^3/uL (0.83-4.51); Absolute Neutrophil Count 15.6 X10^3/uL (2.0-7.7); Basophil# 0.06 X10^3/uL; Basophil% 0.3 % (0-1); Eosinophil# 0.86 X10^3/uL; Eosinophils% 4.3 % (0-5); Hematocrit 38.4 % (40-54); Hemoglobin 12.8 g/dL (13.0-16.5); Lymphocyte # 1.65 X10^3/ul (0.83-4.51); Lymphocyte % 8.2 % (19-41); Mean Corp Hgb Conc 33.3 g/dL (32-36); Mean Corpuscular Hgb 28.4 pg (27.0-32.0); Mean Corpuscular Volume 85.1 fL (80-94); Mean Platelet Vol. 10.1 fl (6.2-12.0); Monocyte# 1.46 X10^3/uL; Monocyte% 7.3 % (0-10); NRBC Flagged by Analyzer 0 % (0-5); Neutrophil # 15.61 X10^3/uL (2.7-7.7); Neutrophil % 77.8 % (47-70); Platelet Count 262 K/mm3 (150-450); RBC Distribution Width CV 12.8 % (11.6-14.6); Red Blood Count 4.51 M/mm3 (4.6-6.2); White Blood Count 20.1 K/mm3 (4.4-11.0)
[2022-03-25] MEDS: levoFLOXacin 750 MG Tablet PO (00:05)
--- NOTE | 2022-03-25 00:28 | ED.RN ---
DOWN TIME. PATIENT DISCHARGED PER SILVANO DENT ON PAPER.
== END 2022-03-25 00:27 | disposition home or self-care (01) ==
PROVIDERS: Emergency Provider Emergency Medicine; Visit Provider Emergency Medicine
DX: J18.9 Pneumonia, unspecified organism (principal); F17.210 Nicotine dependence, cigarettes, uncomplicated; J45.909 Unspecified asthma, uncomplicated; Z28.310 Unvaccinated for COVID-19
CPT/HCPCS: 71045; 80048; 85025; 85379; 87811; 93005; 99282; J7030; A4216